=== PATIENT | female | born 1955 | race Caucasian/White ===

== ENCOUNTER 2017-06-15 22:10 | Emergency (ER) | payer OTHER ==
[~2017-06-15] VITALS: Ht 170.2 cm; Wt 113.6 kg
[2017-06-15] MEDS ORDERED: NAPROSYN500 MG PO (23:50)
[2017-06-15] MEDS ORDERED: FLEXERIL10 MG PO (23:50)
[2017-06-15] MEDS ORDERED: LIDODERM 5% P1 PATCH TD (23:50)
[2017-06-16] VITALS: BP 192/101
== END 2017-06-16 | disposition home or self-care (01) ==
LOC: EME 22:10
DX: S46.911A Strain of unspecified muscle, fascia and tendon at shoulder and upper arm level, right arm, initial encounter (principal); Z88.5 Allergy status to narcotic agent
CPT/HCPCS: 99281; 99283; J2270